=== PATIENT | male | born 1960 | race Caucasian/White ===

== ENCOUNTER 2021-01-23 06:56 | Day surgery (SDC) | payer OTHER ==
[~2021-01-23] VITALS: Ht 185.4 cm; Wt 113.3 kg
[2021-01-23] MEDS ORDERED: ASPI81CH PO (07:25)
[2021-01-23] MEDS ORDERED: AMLODIPINE-BEN1 EAC2 PO (07:27)
== END 2021-01-23 09:36 | disposition home or self-care (01) ==
LOC: ORSCSDS 06:56
PROVIDERS: Orthopaedic Surgery
PROC: 01N50ZZ Release Median Nerve, Open Approach (ICD-10-PCS; principal; 2021-01-23 08:15)
DX: G56.02 Carpal tunnel syndrome, left upper limb (principal); I10 Essential (primary) hypertension; E66.9 Obesity, unspecified; Z68.33 Body mass index [BMI] 33.0-33.9, adult; Z79.899 Other long term (current) drug therapy; Z79.82 Long term (current) use of aspirin
CPT/HCPCS: J0690; J2250; J3010; J7120

== ENCOUNTER 2021-04-10 11:22 | Day surgery (SDC) | payer OTHER ==
[~2021-04-10] VITALS: Ht 185.4 cm; Wt 111.7 kg
[~2021-04-10 11:22] MED LIST: AMLODIPINE-BEN1 EAC2 PO; ASPI81CH PO
--- NOTE | 2021-04-10 13:08 | NUR ---
04/10/21 1308 Jeromy Salamanca BLOCK COMPLETE BY DR GANDARA IN OR TO OPERATIVE HAND. PT TOW.
== END 2021-04-10 13:40 | disposition home or self-care (01) ==
LOC: ORSCSDS 11:22
PROVIDERS: Orthopaedic Surgery
PROC: 01N50ZZ Release Median Nerve, Open Approach (ICD-10-PCS; principal; 2021-04-10 12:45)
DX: G56.01 Carpal tunnel syndrome, right upper limb (principal); I10 Essential (primary) hypertension; E66.9 Obesity, unspecified; Z68.32 Body mass index [BMI] 32.0-32.9, adult; Z79.82 Long term (current) use of aspirin; Z79.899 Other long term (current) drug therapy
CPT/HCPCS: J0690; J2250; J3010; J7120

== ENCOUNTER 2021-12-29 08:09 | Day surgery (SDC) | payer OTHER ==
[~2021-12-29] VITALS: Ht 185.4 cm; Wt 114.9 kg
[2021-12-29] MEDS ORDERED: MULTI-VITAMIN1 EAC2 (09:05)
[2021-12-29] MEDS ORDERED: ASCO500 (09:05)
== END 2021-12-29 10:35 | disposition home or self-care (01) ==
LOC: ORSCSDS 08:09
PROVIDERS: Surgery
PROC: 0DJD8ZZ Inspection of Lower Intestinal Tract, Via Natural or Artificial Opening Endoscopic (ICD-10-PCS; principal; 2021-12-29 10:00)
DX: Z12.11 Encounter for screening for malignant neoplasm of colon (principal); I10 Essential (primary) hypertension; E78.5 Hyperlipidemia, unspecified; Z79.899 Other long term (current) drug therapy
CPT/HCPCS: J2704; J7120